=== PATIENT | female | born 1950 | race Caucasian/White ===

== ENCOUNTER 2016-10-27 11:27 | Emergency (ER) | payer BC ==
[~2016-10-27] VITALS: Ht 167.6 cm; Wt 66.0 kg
[2016-10-27 14:43] LABS: HEMATOCRIT. 38.3 % (36.0-48.0); HEMOGLOBIN. 12.9 g/dL (12.0-16.0); MEAN CORPUSCULAR VOLUME 86.2 fL (81.0-99.0); MEAN PLATELET VOLUME 8.5 fl (7.4-10.4); PLATELET 188 x1000/uL (130-400); RED BLOOD CELL COUNT 4.45 mill/uL (4.2-5.4); RED CELL DISTRIBUTION WIDTH 13.1 % (11.6-14.6)
[2016-10-27 14:48] LABS: PROTHROMBIN TIME 10.3 sec
[2016-10-27 14:56] LABS: CARBON DIOXIDE 31 mEq/L (21-32); CHLORIDE 106 mEq/L (98-107); TROPONIN I < 0.02 ng/mL (0.00-0.04)
[2016-10-27 15:04] LABS: PLATELET ESTIMATE NORMAL
[2016-10-27 18:16] VITALS: BP 151/71
[2016-10-30] MEDS ORDERED: ONDANSETRON HCL 4MG/2ML VIAL IV PRN (15:30)
[2016-10-30] MEDS ORDERED: CLONIDINE 0.1MG TABLET PO PRN (15:30)
[2016-10-30] MEDS ORDERED: IPRATROPIUM/ALBUTEROL 0.5-3(2.5)MG/3ML NEB INH PRN (15:30)
[2016-10-30] MEDS ORDERED: ACETAMINOPHEN 325MG TABLET PO PRN (15:30)
[2016-10-30] MEDS ORDERED: HYDROCODONE/ACETAMINOPHEN 5/325MG TABLET PO PRN (15:30)
[2016-10-30] MEDS ORDERED: ENOXAPARIN 40MG/0.4ML SYR SUBCUT SCH (15:30)
[2016-10-30 20:50] LABS: CARBON DIOXIDE 30 mEq/L (21-32); CHLORIDE 105 mEq/L (98-107)
== END 2016-10-27 18:18 | disposition left against medical advice (07) ==
LOC: ER 14:24 → EDBEDREQ 17:24 → ER 18:18 → CANBEDREQ 18:28
DX: M25.511 Pain in right shoulder (principal); M25.531 Pain in right wrist; M48.02 Spinal stenosis, cervical region; R53.1 Weakness; E11.9 Type 2 diabetes mellitus without complications; Z88.0 Allergy status to penicillin
CPT/HCPCS: 36415; 70450; 71010; 72141; 80053; 83880; 84484; 85025; 85610; 93005; 99285; Z7610